=== PATIENT | male | born 1945 | race Caucasian/White ===

== ENCOUNTER → 2017-11-13 | Outpatient (RCR) | payer MEDICARE, OTHER ==
[~2017-11-13] MED LIST: BIOTIN2500 MCG PO; FISH OIL 1,0001 EAC3 PO; GLUCOSAMINE1000 MG PO; LISINOPRIL-HCT1 EACH PO; VITAMIN D32000 UNIT PO; ZINC SULFATE220 MG PO
== END ==
LOC: PT 10-25 12:52
PROVIDERS: ATTEND Specialist
DX: S83.411A Sprain of medial collateral ligament of right knee, initial encounter (principal); M25.561 Pain in right knee; M25.661 Stiffness of right knee, not elsewhere classified; M25.552 Pain in left hip; M62.81 Muscle weakness (generalized)
CPT/HCPCS: 97010; 97110 ×7; 97140; 97162; G8978; G8979

== ENCOUNTER 2017-11-29 13:59 | Outpatient (RCR) | payer MEDICARE, OTHER | END 2017-12-11 | LOC: PT 13:59 | PROVIDERS: ATTEND Specialist | DX: M70.62 Trochanteric bursitis, left hip (principal); M25.552 Pain in left hip; M25.561 Pain in right knee; S83.411A Sprain of medial collateral ligament of right knee, initial encounter; M62.81 Muscle weakness (generalized) | CPT/HCPCS: 97110 ×7; 97139; 97140 ×3; G8978; G8979 ==

== ENCOUNTER 2017-12-20 15:00 | Outpatient (RCR) | payer MEDICARE, OTHER | END 2018-01-11 | LOC: PT 15:00 | PROVIDERS: ATTEND Specialist | DX: M25.561 Pain in right knee (principal); M25.552 Pain in left hip; M70.62 Trochanteric bursitis, left hip; R26.2 Difficulty in walking, not elsewhere classified | CPT/HCPCS: 97110 ×3; 97139; 97140; G8978; G8979 ==